=== PATIENT | male | born 1995 | race Caucasian/White ===

== ENCOUNTER 2024-08-02 15:32 | Inpatient (IN) | payer OTHER ==
[2024-08-02 16:45] VITALS: BMI 31.1
[2024-08-02] MEDS ORDERED: DICYCLOMINE HCL 10 MG CAPSULE PO PRN (17:23)
[2024-08-02] MEDS ORDERED: ACETAMINOPHEN 325 MG TABLET (FP) PO PRN (17:23)
[2024-08-02] MEDS ORDERED: ONDANSETRON *ODT* 4 MG TABLET SL PRN (17:23)
[2024-08-02] MEDS ORDERED: NALOXONE (NARCAN) HCL 4 MG/0.1 ML SPRAY NS PRN (17:23)
[2024-08-02] MEDS ORDERED: NALOXONE HCL 0.4 MG/ML VIAL IM PRN (17:23)
[2024-08-02] MEDS ORDERED: BENZOCAINE/MENTHOL (CHLORASEPTIC ) LOZENGE MM PRN (17:23)
[2024-08-02] MEDS ORDERED: POLYETHYLENE GLYCOL (HEALTHYLAX) 3350 17 GM PACKET PO PRN (17:23)
[2024-08-02] MEDS ORDERED: MAGNESIUM HYDROX 2400MG/30ML ORAL SUSPENSION 30 ML CUP PO PRN (17:23)
[2024-08-02] MEDS ORDERED: chlordiazePOXIDE HCL 25 MG CAPSULE PO PRN (17:23)
[2024-08-02] MEDS ORDERED: LOPERAMIDE HCL 2 MG CAPSULE PO PRN (17:23)
[2024-08-02] MEDS ORDERED: guaiFENesin 600 MG TABLET.ER (FP) PO PRN (17:23)
[2024-08-02] MEDS ORDERED: NICOTINE POLACRILEX 2 MG LOZENGE BC PRN (17:23)
[2024-08-02] MEDS ORDERED: IBUPROFEN 400 MG TABLET (FP) PO PRN (17:23)
[2024-08-02] MEDS ORDERED: BENZONATATE 200 MG CAPSULE PO PRN (17:23)
[2024-08-02] MEDS ORDERED: MAG HYDROX/AL HYDROX/SIMETH 30 ML UNIT-DOSE CUP PO PRN (17:23)
[2024-08-02] MEDS ORDERED: BISMUTH SUBSALICYLATE 524 MG/30 ML PO PRN (17:23)
[2024-08-02] MEDS ORDERED: IBUPROFEN 600 MG TABLET (FP) PO PRN (17:23)
[2024-08-02] MEDS: MELATONIN 5 MG TABLETS PO SCH (22:24)
[2024-08-02] MEDS: THIAMINE 100 MG TABLET PO SCH (22:24)
[2024-08-02] MEDS: chlordiazePOXIDE HCL 25 MG CAPSULE PO SCH (22:25)
[2024-08-03] MEDS: PRENATAL VITAMINS W/ FOLIC ACID TABLET (FP) PO SCH (10:15)
[2024-08-03] MEDS: NICOTINE 14 MG/24 HOURS TOPICAL PATCH TD SCH (10:20)
[2024-08-03 13:38] LABS: HEMATOCRIT 41.6 % (35.4-49); HEMOGLOBIN 13.9 GM/dL (11.7-16.9); MCHC 33.4 g/dl (32.0-35.9); MEAN PLT VOLUME 8.7 fl (7.5-11.1); PLATELET COUNT 233 10^3/uL (134-434); RBC 4.62 M/mm3 (4.00-5.60); RDW 14.9 % (11.9-15.9); WHITE BLOOD COUNT 6.1 K/mm3 (4.0-10.0)
[2024-08-03 13:55] LABS: CHLORIDE 106 mmol/L (98-107); SODIUM 137 mmol/L (136-145)
[2024-08-03 14:01] LABS: ALBUMIN 3.7 g/dl (3.4-5.0); CALCIUM 9.4 mg/dL (8.5-10.1); GLUCOSE,RANDOM 174 mg/dL (74-106)
[2024-08-03 14:04] LABS: CREATININE 0.9 mg/dL (0.55-1.3); SGOT/AST 12 U/L (15-37)
[2024-08-03 14:05] LABS: BLOOD UREA NITROGEN 18.3 mg/dL (7-18)
[2024-08-03 14:06] LABS: ANION GAP 8 mmol/L (4-13); BILIRUBIN,TOTAL 0.5 mg/dL (0.2-1); CO2 22 mmol/L (21-32); TOT PROT 6.8 g/dl (6.4-8.2)
[2024-08-03 14:07] LABS: ALK PHOS 82 U/L (45-117)
[2024-08-03 14:09] LABS: SGPT/ALT 22 U/L (13-61)
[2024-08-03 14:47] LABS: HIV INTERPRETATION NEGATIVE (NEGATIVE)
[2024-08-03] MEDS: DIVALPROEX SODIUM 500 MG TABLET E.C. PO SCH (14:56)
[2024-08-03] MEDS: traZODone HCL 50 MG TABLET (FP) PO SCH (22:15)
[2024-08-03] MEDS: OLANZapine 10 MG TABLET PO SCH (22:15)
[2024-08-04] MEDS: chlordiazePOXIDE HCL 25 MG CAPSULE PO SCH (05:40)
[2024-08-04] MEDS: SERTRALINE HCL 50 MG TABLET (FP) PO SCH (10:21)
[2024-08-04] MEDS: METHOCARBAMOL 500 MG TABLET PO PRN (22:34)
[2024-08-05] MEDS ORDERED: chlordiazePOXIDE HCL 10 MG CAPSULE PO PRN
[2024-08-05] MEDS: chlordiazePOXIDE HCL 10 MG CAPSULE PO SCH (05:42)
[2024-08-05] MEDS: hydrOXYzine PAMOATE 25 MG CAPSULE (FP) PO PRN (22:16)
[2024-08-06] MEDS: chlordiazePOXIDE HCL 10 MG CAPSULE PO SCH (05:39)
[2024-08-07] MEDS: chlordiazePOXIDE HCL 10 MG CAPSULE PO ONE (05:23)
[2024-08-07 05:53] VITALS: PULSE 72
[2024-08-07 09:04] VITALS: BP 104/60; RESP 16; TEMP 97.7
== END 2024-08-07 11:48 | disposition other institution (70) | DRG 775 ==
LOC: YASAS 15:32 → Y3N 17:54
PROVIDERS: ADMIT Allergy & Immunology; ATTEND Surgery
PROC: HZ2ZZZZ Detoxification Services for Substance Abuse Treatment (ICD-10-PCS; principal; 2024-08-02)
DX: F10.230 Alcohol dependence with withdrawal, uncomplicated (principal); F17.213 Nicotine dependence, cigarettes, with withdrawal; F20.9 Schizophrenia, unspecified; F19.24 Other psychoactive substance dependence with psychoactive substance-induced mood disorder; F32.9 Major depressive disorder, single episode, unspecified; F41.9 Anxiety disorder, unspecified
CPT/HCPCS: 36415; 80053; 80164; 80305; 80307; 85027; 86780; 86803; 87389; 87811; 93005; 93010

== ENCOUNTER 2024-08-07 11:54 | Inpatient (IN) | payer OTHER ==
[2024-08-07] MEDS ORDERED: guaiFENesin 600 MG TABLET.ER (FP) PO PRN (13:50)
[2024-08-07] MEDS ORDERED: MAGNESIUM HYDROX 2400MG/30ML ORAL SUSPENSION 30 ML CUP PO PRN (13:50)
[2024-08-07] MEDS ORDERED: NICOTINE POLACRILEX 4 MG LOZENGE BC PRN (13:50)
[2024-08-07] MEDS: DIVALPROEX SODIUM 500 MG TABLET E.C. PO SCH ×2 (13:50→21:06)
[2024-08-07] MEDS ORDERED: NALOXONE HCL 0.4 MG/ML VIAL IVPUSH PRN (13:50)
[2024-08-07] MEDS ORDERED: BENZOCAINE/MENTHOL (CHLORASEPTIC ) LOZENGE MM PRN (13:50)
[2024-08-07] MEDS ORDERED: LOPERAMIDE HCL 2 MG CAPSULE PO PRN (13:50)
[2024-08-07] MEDS ORDERED: METHOCARBAMOL 500 MG TABLET PO PRN (13:50)
[2024-08-07] MEDS ORDERED: MAG HYDROX/AL HYDROX/SIMETH 30 ML UNIT-DOSE CUP PO PRN (13:50)
[2024-08-07] MEDS ORDERED: BENZONATATE 200 MG CAPSULE PO PRN (13:50)
[2024-08-07] MEDS ORDERED: IBUPROFEN 400 MG TABLET (FP) PO PRN (13:50)
[2024-08-07] MEDS ORDERED: POLYETHYLENE GLYCOL (HEALTHYLAX) 3350 17 GM PACKET PO PRN (13:50)
[2024-08-07] MEDS ORDERED: hydrOXYzine PAMOATE 25 MG CAPSULE (FP) PO PRN (13:50)
[2024-08-07] MEDS ORDERED: NICOTINE 14 MG/24 HOURS TOPICAL PATCH TD PRN (13:50)
[2024-08-07] MEDS ORDERED: ACETAMINOPHEN 325 MG TABLET (FP) PO PRN (13:50)
[2024-08-07] MEDS ORDERED: NALOXONE (NARCAN) HCL 4 MG/0.1 ML SPRAY NS PRN (13:50)
[2024-08-07] MEDS: MELATONIN 5 MG TABLETS PO SCH (21:05)
[2024-08-07] MEDS: THIAMINE 100 MG TABLET PO SCH (21:05)
[2024-08-07] MEDS: traZODone HCL 50 MG TABLET (FP) PO SCH (21:06)
[2024-08-07] MEDS: OLANZapine 10 MG TABLET PO SCH (21:06)
[2024-08-08] MEDS: PRENATAL VITAMINS W/ FOLIC ACID TABLET (FP) PO SCH (10:09)
[2024-08-08] MEDS: SERTRALINE HCL 50 MG TABLET (FP) PO SCH (10:09)
[2024-08-08] MEDS: NICOTINE POLACRILEX 4 MG GUM BUC PRN (10:11)
[2024-08-08] MEDS: PNEUMOC 20-VAL CONJ-DIP CRM/PF 0.5 ML SYRINGE IM ONE (12:25)
[2024-08-08] MEDS: FLU VACCINE (FLULAVAL) PF 45 MCG/0.5 ML SYRINGE 2024-2025 IM ONE (12:35)
[2024-08-08] MEDS: NALTREXONE HCL 50 MG TABLET PO ONE (17:34)
[2024-08-08] MEDS: BACLOFEN 10 MG TABLET (FP) PO SCH (21:16)
[2024-08-08] MEDS: GABAPENTIN 100 MG CAPSULE PO SCH (21:17)
[2024-08-09] MEDS: NALTREXONE HCL 50 MG TABLET PO SCH (10:13)
[2024-08-09] MEDS: IBUPROFEN 600 MG TABLET (FP) PO PRN (10:14)
[2024-08-10] MEDS ORDERED: NALOXONE (NYS OPIOID OVERDOSE PROGRAM) 4 MG/0.1 ML SPRAY NS PRN (14:42)
[2024-08-10] MEDS: traZODone HCL 50 MG TABLET (FP) PO SCH (21:06)
[2024-08-23] MEDS: LACTULOSE 20 GM/30 ML UDC (FOR ORAL USE ONLY) PO SCH (13:17)
[2024-09-04] MEDS: NALTREXONE MICROSPHERES (VIVITROL) 380 MG DISP.SYRIN IM ONE (10:37)
[2024-09-05 06:28] VITALS: BP 109/72; PULSE 68; RESP 18; TEMP 97
== END 2024-09-05 14:38 | disposition home or self-care (01) | DRG 772 ==
LOC: YASAS 11:54 → Y3E 11:56
PROVIDERS: ADMIT Psychiatry & Neurology Pain Medicine; ATTEND Psychiatry & Neurology Pain Medicine
PROC: HZ42ZZZ Group Counseling for Substance Abuse Treatment, Cognitive-Behavioral (ICD-10-PCS; principal; 2024-08-07)
DX: F10.20 Alcohol dependence, uncomplicated (principal); F14.20 Cocaine dependence, uncomplicated; F15.20 Other stimulant dependence, uncomplicated; F11.20 Opioid dependence, uncomplicated; F12.20 Cannabis dependence, uncomplicated; F17.210 Nicotine dependence, cigarettes, uncomplicated; F19.282 Other psychoactive substance dependence with psychoactive substance-induced sleep disorder; F19.24 Other psychoactive substance dependence with psychoactive substance-induced mood disorder; F20.9 Schizophrenia, unspecified; F41.9 Anxiety disorder, unspecified; F32.A Depression, unspecified; E72.20 Disorder of urea cycle metabolism, unspecified
CPT/HCPCS: 36415; 80164; 82140; 82962; 83036; 86803; 90656; 90677; G0008; G0009; J0475; J2315

== ENCOUNTER 2024-09-10 09:23 | Inpatient (IN) | payer OTHER ==
[2024-09-10 09:50] VITALS: BMI 33.3
[2024-09-10] MEDS ORDERED: IBUPROFEN 600 MG TABLET (FP) PO PRN (10:20)
[2024-09-10] MEDS ORDERED: LOPERAMIDE HCL 2 MG CAPSULE PO PRN (10:20)
[2024-09-10] MEDS ORDERED: IBUPROFEN 400 MG TABLET (FP) PO PRN (10:20)
[2024-09-10] MEDS ORDERED: POLYETHYLENE GLYCOL (HEALTHYLAX) 3350 17 GM PACKET PO PRN (10:20)
[2024-09-10] MEDS ORDERED: MAG HYDROX/AL HYDROX/SIMETH 30 ML UNIT-DOSE CUP PO PRN (10:20)
[2024-09-10] MEDS ORDERED: ONDANSETRON *ODT* 4 MG TABLET SL PRN (10:20)
[2024-09-10] MEDS ORDERED: BENZOCAINE/MENTHOL (CHLORASEPTIC ) LOZENGE MM PRN (10:20)
[2024-09-10] MEDS ORDERED: DICYCLOMINE HCL 10 MG CAPSULE PO PRN (10:20)
[2024-09-10] MEDS ORDERED: BENZONATATE 200 MG CAPSULE PO PRN (10:20)
[2024-09-10] MEDS ORDERED: MAGNESIUM HYDROX 2400MG/30ML ORAL SUSPENSION 30 ML CUP PO PRN (10:20)
[2024-09-10] MEDS ORDERED: guaiFENesin 600 MG TABLET.ER (FP) PO PRN (10:20)
[2024-09-10] MEDS ORDERED: ACETAMINOPHEN 325 MG TABLET (FP) PO PRN (10:20)
[2024-09-10] MEDS ORDERED: NICOTINE POLACRILEX 4 MG GUM BUC PRN (10:20)
[2024-09-10] MEDS ORDERED: BISMUTH SUBSALICYLATE 524 MG/30 ML PO PRN (10:20)
[2024-09-10] MEDS ORDERED: chlordiazePOXIDE HCL 25 MG CAPSULE PO PRN (10:20)
[2024-09-10] MEDS ORDERED: NALOXONE (NARCAN) HCL 4 MG/0.1 ML SPRAY NS PRN (10:20)
[2024-09-10] MEDS ORDERED: BUPRENORPHINE HCL 150 MCG, BUPRENORPHINE HCL 75 MCG BC PRN (10:29)
[2024-09-10] MEDS ORDERED: diazePAM 5 MG TABLET PO PRN (10:29)
[2024-09-10] MEDS ORDERED: BUPRENORPHINE HCL 150 MCG, BUPRENORPHINE HCL 75 MCG BC ONE (10:45)
[2024-09-10] MEDS ORDERED: NICOTINE 21 MG/24 HOURS TOPICAL PATCH ONE (11:14)
[2024-09-10] MEDS ORDERED: chlordiazePOXIDE HCL 25 MG CAPSULE ONE (11:14)
[2024-09-10] MEDS ORDERED: cloNIDine HCL 0.1 MG TABLET ONE (11:14)
[2024-09-10] MEDS: NICOTINE 21 MG/24 HOURS TOPICAL PATCH TD SCH (11:16)
[2024-09-10] MEDS: cloNIDine HCL 0.1 MG TABLET PO ONE (11:16)
[2024-09-10] MEDS: chlordiazePOXIDE HCL 25 MG CAPSULE PO SCH (11:16)
[2024-09-10] MEDS: GABAPENTIN 100 MG CAPSULE PO SCH (13:43)
[2024-09-10] MEDS: MELATONIN 5 MG TABLETS PO SCH (22:40)
[2024-09-10] MEDS: THIAMINE 100 MG TABLET PO SCH (22:40)
[2024-09-10] MEDS: BACLOFEN 10 MG TABLET (FP) PO SCH (22:40)
[2024-09-10] MEDS: DIVALPROEX SODIUM 500 MG TABLET E.C. PO SCH (22:40)
[2024-09-11] MEDS ORDERED: BUPRENORPHINE HCL 150 MCG, BUPRENORPHINE HCL 75 MCG BC PRN
[2024-09-11] MEDS ORDERED: BUPRENORPHINE HCL 150 MCG, BUPRENORPHINE HCL 75 MCG BC SCH (06:00)
[2024-09-11] MEDS: PRENATAL VITAMINS W/ FOLIC ACID TABLET (FP) PO SCH (11:04)
[2024-09-11] MEDS: hydrOXYzine PAMOATE 25 MG CAPSULE (FP) PO PRN (14:43)
[2024-09-11 15:09] LABS: HEMATOCRIT 38.6 % (35.4-49); HEMOGLOBIN 13.4 GM/dL (11.7-16.9); MCHC 34.6 g/dl (32.0-35.9); MEAN CELL VOLUME 89.6 fl (80-96); MEAN PLT VOLUME 8.6 fl (7.5-11.1); PLATELET COUNT 163 10^3/uL (134-434); RBC 4.31 M/mm3 (4.00-5.60); RDW 14.1 % (11.9-15.9); WHITE BLOOD COUNT 7.3 K/mm3 (4.0-10.0)
[2024-09-11 15:19] LABS: POTASSIUM 3.8 mmol/L (3.5-5.1)
[2024-09-11 15:21] LABS: CALCIUM 8.8 mg/dL (8.5-10.1)
[2024-09-11 15:22] LABS: ALBUMIN 3.6 g/dl (3.4-5.0); BLOOD UREA NITROGEN 15.5 mg/dL (7-18)
[2024-09-11 15:25] LABS: CREATININE 0.9 mg/dL (0.55-1.3)
[2024-09-11 15:26] LABS: BILIRUBIN,TOTAL 0.4 mg/dL (0.2-1); TOT PROT 6.8 g/dl (6.4-8.2)
[2024-09-11] MEDS: cloNIDine HCL 0.1 MG TABLET PO PRN (22:23)
[2024-09-12] MEDS: NICOTINE POLACRILEX 4 MG LOZENGE BC PRN
[2024-09-12] MEDS: chlordiazePOXIDE HCL 25 MG CAPSULE PO SCH (05:44)
[2024-09-12] MEDS ORDERED: BUPRENORPHINE HCL 450 MCG FILM BC SCH (06:00)
[2024-09-12] MEDS: METHOCARBAMOL 500 MG TABLET PO PRN (22:18)
[2024-09-13] MEDS ORDERED: chlordiazePOXIDE HCL 10 MG CAPSULE PO PRN
[2024-09-13] MEDS ORDERED: BUPRENORPHINE/NALOXONE 4 MG/1 MG FILM PACKET SL SCH (06:00)
[2024-09-13] MEDS: chlordiazePOXIDE HCL 10 MG CAPSULE PO SCH (06:00)
[2024-09-14] MEDS: chlordiazePOXIDE HCL 10 MG CAPSULE PO SCH (05:22)
[2024-09-14] MEDS ORDERED: BUPRENORPHINE/NALOXONE 8 MG/2 MG FILM PACKET SL ONE (06:00)
[2024-09-14] MEDS ORDERED: NALTREXONE HCL 50 MG TABLET PO SCH (10:45)
[2024-09-15] MEDS: chlordiazePOXIDE HCL 10 MG CAPSULE PO ONE (06:00)
[2024-09-15 09:42] VITALS: BP 114/68; PULSE 80; RESP 18; TEMP 97.5
[2024-09-15] MEDS: NALOXONE (NYS OPIOID OVERDOSE PROGRAM) 4 MG/0.1 ML SPRAY NS PRN (11:36)
== END 2024-09-15 09:52 | disposition home or self-care (01) | DRG 773 ==
LOC: YASAS 09:23 → Y6N 10:40
PROVIDERS: ADMIT Allergy & Immunology; ATTEND Surgery
PROC: HZ2ZZZZ Detoxification Services for Substance Abuse Treatment (ICD-10-PCS; principal; 2024-09-10)
DX: F11.23 Opioid dependence with withdrawal (principal); F10.230 Alcohol dependence with withdrawal, uncomplicated; F14.20 Cocaine dependence, uncomplicated; F12.20 Cannabis dependence, uncomplicated; F17.210 Nicotine dependence, cigarettes, uncomplicated; F19.282 Other psychoactive substance dependence with psychoactive substance-induced sleep disorder; F19.280 Other psychoactive substance dependence with psychoactive substance-induced anxiety disorder; F19.24 Other psychoactive substance dependence with psychoactive substance-induced mood disorder; F20.9 Schizophrenia, unspecified; Z56.0 Unemployment, unspecified; Z59.00 Homelessness unspecified
CPT/HCPCS: 36415; 80053; 80305; 80307; 82962; 85027; 86780; 93005; 93010; J0475